=== PATIENT | male | born 1960 | race Caucasian/White ===

== ENCOUNTER 2024-12-29 17:33 | Emergency (ER) | payer MEDICARE, MEDICAID ==
[~2024-12-29] VITALS: Ht 167.6 cm; Wt 120.0 kg
[2024-12-29 17:44] VITALS: BP 127/59; PULSE 91; RESP 18; TEMP 98.1; O2SAT 95
[2024-12-29 19:06] LABS: PLATELET COUNT (AUTO) 242 K/uL (150-450); RED BLOOD CELL COUNT(AUTO) 4.54 MIL/uL (4.50-5.90); RED CELL DISTRIBUTION WIDTH 14.8 % (11.5-14.5); WHITE BLOOD COUNT (AUTO) 7.2 K/uL (4.5-11.0)
[2024-12-29 19:17] LABS: CALCIUM, TOTAL 8.3 mg/dL (8.8-10.5); CREATININE 1.06 mg/dL (0.60-1.30); GLOMERULAR FILTR. RATE CALC > 60 mL/min (>60); GLUCOSE,RANDOM 109 mg/dL (70-110); SODIUM SERUM 137 mmol/L (136-145); UREA NITROGEN, BLOOD 20 mg/dL (7-18)
[2024-12-29] MEDS ORDERED: NAPR-1196 PO (20:45)
[2024-12-29] MEDS ORDERED: CEPH-558 PO (20:45)
[2024-12-29] MEDS: CEPHALEXIN MONOHYDRATE 500 MG CAPSULE PO ONE (20:55)
[2024-12-29] MEDS: NAPROXEN 500 MG TABLET PO ONE (21:30)
== END 2024-12-29 21:42 | disposition home or self-care (01) ==
LOC: EMS 17:33
DX: S83.92XA Sprain of unspecified site of left knee, initial encounter (principal); S80.222A Blister (nonthermal), left knee, initial encounter; E03.9 Hypothyroidism, unspecified; I10 Essential (primary) hypertension; Z79.01 Long term (current) use of anticoagulants; Z79.899 Other long term (current) drug therapy; W19.XXXA Unspecified fall, initial encounter; Y93.89 Activity, other specified; Y92.89 Other specified places as the place of occurrence of the external cause; Y99.8 Other external cause status
CPT/HCPCS: 29505; 80048; 85025; 99284